=== PATIENT | female | born 1975 | race Caucasian/White ===

== ENCOUNTER 2020-08-14 14:53 | Emergency (ER) | payer OTHER, SELFPAY ==
--- NOTE | ~2020-08-14 | XR_ITS ---
EXAMINATION: XR chest 2V DATE: 08/14/2020 15:23 INDICATION: Cough and congestion TECHNIQUE: PA and lateral views of the chest are obtained. COMPARISON: None available FINDINGS: There are minimal airspace opacities of the right lung base. There is no pleural effusion o r pneumothorax. The cardiomediastinal silhouette is normal. There is moderate thoracic spondylosis. IMPRESSION: 1. Right basilar airspace opacity, consistent with atelectasis versus pneumonia. Reviewed, dictated and finalized at location B. IMPRESSION: 1. Right basilar airspace opacity, consistent with atelectasis versus pneumonia .
[2020-08-14 15:11] VITALS: BP 187/82; PULSE 98; RESP 16; TEMP 36.8; O2SAT 96
--- NOTE | 2020-08-14 15:30 | ED.URI ---
HPI - URI/Sore Throat General Chief Complaint: Upper Respiratory Infection Stated Complaint: heavy chest/vomiting/diarrhea/cough Source: patient Mode of arrival: ambulatory Limitations: no limitations History of Present Illness HPI Narrative: Rahul is a 45 year old female who presents reporting cough, congesting, chest heaviness, mild sob, weakness and generalized body aches x 1 week. She denies fever. She reports taking over the counter medications with limited relief. Patient reports no significant medical history. She smokes cigarettes daily. She denies all other complaints at this time. MD elicited complaint: cough Related Data Allergies Allergy/AdvReac Type Severity Reaction Status Date / Time NKDA Allergy Uncoded 06/21/11 19:59 Review of Systems Review of Systems: Narrative: CONSTITUTIONAL: Denies fever, chills, or sweats, reports lethargy and generalized body aches. EYES: Denies visual changes, redness, or discharge. ENT: Denies rhinorrhea, congestion, sore throat, or otalgia. CARDIOVASCULAR: Denies chest pain, palpitations, or edema. RESPIRATORY: Reports cough and dyspnea GASTROINTESTINAL: Denies abdominal pain, nausea, vomiting, or diarrhea. GENITOURINARY: Denies dysuria or hematuria. SKIN: Denies rash or itching. MUSCULOSKELETAL: Denies back pain, joint pain, or myalgia. NEUROLOGIC: Denies headache, numbness, dizziness, or weakness. PSYCHIATRIC: Denies anxiety or depression. [facility] Past Medical History Medical History No significant past medical history Surgical History Surgical History H/O tubal ligation Family History Family History Other No significant family history Social History Social History (Updated 08/14/20 @ 15:35 by GILDARDO Rolon) Smoking status: Current every day smoker Tobacco type: cigarettes Alcohol intake: current Alcohol use details: Occasional Substance use: never Living arrangements: with family Occupation/Education: occupation Comments At the time of signature, I have reviewed and agree with nursing past medical, surgical, social, and family history unless otherwise noted. Please see nursing chart for further information. There is no relevant family history pertinent to the presenting complaint. Exam Narrative: Exam Narrative: GENERAL: Well-appearing, well-nourished, and in no acute distress. HEAD: Normocephalic, atraumatic. EYES: EOMI. No redness or drainage. Conjunctiva are normal. ENT: Mucous membranes pink and moist. CHEST: No respiratory distress. Diminished lung sounds bilaterally HEART: Regular rate and rhythm. No murmur appreciated. Normal peripheral pulses. EXTREMITIES: Normal range of motion. No edema. SKIN: Warm, dry, no rash. NEURO: No focal deficits. Alert and oriented x3. Gait steady. PSYCH: Normal affect. No signs of depression or anxiety. Course Vital Signs Vital signs: Vital Signs Temperature 36.8 C 08/14/20 15:11 Pulse Rate 98 08/14/20 15:11 Respiratory Rate 16 08/14/20 15:11 Blood Pressure 187/82 H 08/14/20 15:11 Pulse Oximetry 96 08/14/20 15:11 Temperature 36.8 C 08/14/20 15:11 Pulse Rate 98 08/14/20 15:11 Respiratory Rate 16 08/14/20 15:11 Blood Pressure 187/82 H 08/14/20 15:11 Pulse Oximetry 96 08/14/20 15:11 Reviewed-patient is informed that they may have pre-hypertension or hypertension based on a blood pressure reading. I recommend the patient call the primary care provider listed on their discharge instructions or a physician of their choice this week to arrange follow-up for further evaluation of possible pre-hypertension or hypertension. MDM - URI/Sore Throat MDM Narrative Medical decision making narrative: Patient's checks x-ray shows possible right-sided pneumonia. Patient's rapid Covid was negative. Covid
[2020-08-15 21:08] LABS: SARS-CoV-2 RNA PCR Negative
== END 2020-08-14 16:06 | disposition home or self-care (01) ==
PROVIDERS: Emergency Provider Nurse Practitioner
DX: J18.9 Pneumonia, unspecified organism (principal); Z20.822 Contact with and (suspected) exposure to COVID-19; F17.210 Nicotine dependence, cigarettes, uncomplicated
CPT/HCPCS: 71046; 87426; 99203; C9803; G0463; U0003; U0005

== ENCOUNTER 2021-04-29 16:08 | Emergency (ER) | payer BC, SELFPAY ==
--- NOTE | ~2021-04-29 | XR_ITS ---
XR chest 2V DATE: 04/29/2021 16:47 INDICATION: Cough. Covid-positive on 04/18/2021. Smoker. TECHNIQUE: PA and lateral views . COMPARISON: PA and lateral chest FINDINGS: there are patchy groundglass infiltrates involving the left mid and lower lung and to a les ser extent right mid and lower lung, suggesting bilateral Covid pneumonia. No pleural effusion. No pu lmonary vascular congestion. No hilar or mediastinal enlargement is evident. No pneumothorax or pneum omediastinum. Heart size is normal IMPRESSION: Mild patchy groundglass infiltrates, left greater than right, suggesting bilateral Covid pneumonia Reviewed, dictated and finalized at location A. CUTTER IMPRESSION: Mild patchy groundglass infiltrates, left greater than right, sugge sting bilateral Covid pneumonia
[2021-04-29 16:15] VITALS: BP 155/97; PULSE 91; RESP 16; TEMP 36; O2SAT 97
[2021-04-29 16:19] VITALS: BP 155/97; PULSE 91; RESP 16; TEMP 36; O2SAT 97
--- NOTE | 2021-04-29 16:42 | ED.URI ---
HPI - URI/Sore Throat General Chief Complaint: Upper Respiratory Infection Stated Complaint: nausea/light headed/fatigue Time Seen by Provider: 04/29/21 16:25 Source: patient and RN notes reviewed Mode of arrival: ambulatory Limitations: no limitations History of Present Illness HPI Narrative: Patient presents today complaining of headache, nausea, cough with some shortness of breath. She tested positive for COVID-19 on 04/18/2021 and quarantined until 04/27/2021. States she is not feeling much better. She went to work today has her first day back from work and was feeling a bit lightheaded when she was working, after a few hours. Her employer wanted her to come get checked out before she continued back to work. She has been taking Mucinex DM, Airborne, and vitamins at home without much relief. She is a smoker. She has not been vaccinated against COVID-19. MD elicited complaint: cough Related Data Allergies Allergy/AdvReac Type Severity Reaction Status Date / Time NKDA Allergy Uncoded 06/21/11 19:59 Review of Systems Review of Systems: CONSTITUTIONAL: Denies body aches, fever, chills, or sweats. EYES: Denies visual changes, redness, or discharge. ENT: Denies rhinorrhea, congestion, sore throat, or otalgia. CARDIOVASCULAR: Denies chest pain, palpitations, or edema. RESPIRATORY: + Cough, shortness of breath. GASTROINTESTINAL: Denies abdominal pain, vomiting, or diarrhea.+ Nausea GENITOURINARY: Denies dysuria or hematuria. SKIN: Denies rash, itching, or wounds. MUSCULOSKELETAL: Denies back pain, joint pain, or myalgia. NEUROLOGIC: Denies numbness, tingling, or weakness.+ Headache PSYCH: Denies depression or anxiety. [facility] Past Medical History Medical History No significant past medical history Surgical History Surgical History H/O tubal ligation Family History Family History Other No significant family history Social History Social History Smoking status: Current every day smoker Tobacco type: cigarettes Alcohol intake: current Alcohol use details: Occasional Substance use: never Comments At time of signature, I have reviewed and agree with nursing past medical, surgical, social and family history unless otherwise noted. Please see nursing chart for further information. There is no relevant family history pertinent to the presenting complaint Exam Narrative: GENERAL: Mildly ill-appearing, well-nourished, and in no acute distress. HEAD: Normocephalic, atraumatic. EYES: EOMI. No redness or drainage. Conjunctivae normal. ENT: Mucous membranes pink and moist. Nares clear. No rhinorrhea. TMs normal bilaterally. Throat normal. Uvula midline. NECK: Normal AROM. Supple. No lymphadenopathy. CHEST: No respiratory distress. Clear to auscultation. HEART: Regular rate and rhythm. No murmur appreciated. Normal peripheral pulses. EXTREMITIES: Normal range of motion. No edema. SKIN: Warm, dry, no rash. Capillary refill normal. Normal skin turgor. NEURO: No focal deficits. Alert and oriented x3. Gait steady. PSYCH: Normal affect. No signs of depression or anxiety. Course Vital Signs Vital signs: Vital Signs Temperature 96.8 F L 04/29/21 16:15 Pulse Rate 91 04/29/21 16:15 Respiratory Rate 16 04/29/21 16:15 Blood Pressure 155/97 H 04/29/21 16:15 Pulse Oximetry 97 04/29/21 16:15 Temperature 96.8 F L 04/29/21 16:19 Pulse Rate 91 04/29/21 16:19 Respiratory Rate 16 04/29/21 16:19 Blood Pressure 155/97 H 04/29/21 16:19 Pulse Oximetry 97 04/29/21 16:19 Reviewed. Pt has been instructed to follow up with her PCP regarding her elevated blood pressure today. MDM - URI/Sore Throat Differential Diagnosis Differential diagnosis: Saadia
== END 2021-04-29 17:19 | disposition home or self-care (01) ==
PROVIDERS: Emergency Provider Nurse Practitioner
DX: U07.1 COVID-19 (principal); J12.82 Pneumonia due to coronavirus disease 2019; F17.210 Nicotine dependence, cigarettes, uncomplicated
CPT/HCPCS: 71046; 99213; G0463